=== PATIENT | male | born 1965 | race Caucasian/White ===

== ENCOUNTER 2018-11-09 11:45 | Emergency (ER) | payer BC, OTHER ==
[2018-11-09] MEDS ORDERED: Sodium Chloride 0.9% 10 ML Syringe FLUSH PRN (12:29)
[2018-11-09] MEDS ORDERED: Metoclopramide 10 MG/2 ML SDV IVPUSH ONE (12:29)
[2018-11-09] MEDS ORDERED: Lactated Ringers 1,000 ML IV ONE (12:29)
--- NOTE | 2018-11-09 12:40 | EDM.PDOC ---
ED HPI GENERAL MEDICAL PROBLEM - General Chief Complaint: Abdominal Pain Stated Complaint: ABDOMINAL PAIN Time Seen by Provider: 11/09/18 12:38 Source of Information: Reports: Patient History Limitations: Reports: No Limitations - History of Present Illness INITIAL COMMENTS - FREE TEXT/NARRATIVE: 53-year-old male presents for evaluation and treatment of abdominal pain. Patient reports that the pain started this morning around 0700. Pain Is in the epigastric area. He reports associated symptoms of fevers and chills. Last BM was this morning. He has not appreciated any blood in his stool. Reports a decreased appetite. Denies any urinary symptoms including no dysuria. No diarrhea. No previous abdominal surgeries. Patient does drink alcohol daily, 2-3 drinks per day. Primary care provider is Dr. Solo. Abdominal Pain Score (Numeric/FACES): 6 - Related Data Allergies Allergy/AdvReac Type Severity Reaction Status Date / Time amoxicillin Allergy Nausea Verified 11/09/18 11:49 Home Meds: Home Meds Acetaminophen/oxyCODONE [Percocet 325-5 MG] 1 each PO Q4HR PRN #15 tab 11/09/18 [Rx] Amlodipine. 11/09/18 [History] Bystolic. 11/09/18 [History] Hydrochlorothiazide. 11/09/18 [History] Past Medical History Cardiovascular History: Reports: Hypertension - Past Surgical History Musculoskeletal Surgical History: Reports: Knee Replacement Social & Family History - Tobacco Use Smoking Status *Q: Never Smoker - Recreational Drug Use Recreational Drug Use: No ED ROS GENERAL - Review of Systems Review Of Systems: See Below Constitutional: Reports: Fever, Chills, Malaise, Decreased Appetite Respiratory: Denies: Shortness of Breath Cardiovascular: Denies: Chest Pain GI/Abdominal: Reports: Abdominal Pain (epigastric). Denies: Bloody Stool, Diarrhea, Hematochezia, Melena, Nausea, Vomiting : Reports: No Symptoms ED EXAM, GI/ABD - Physical Exam Exam: See Below Exam Limited By: No Limitations General Appearance: Alert, WD/WN, No Apparent Distress Ears: Normal External Exam Nose: Normal Inspection Throat/Mouth: Normal Inspection, Normal Lips, Normal Oropharynx, Normal Voice, No Airway Compromise Respiratory/Chest: No Respiratory Distress, Lungs Clear, Normal Breath Sounds Cardiovascular: Normal Peripheral Pulses, Regular Rate, Rhythm, No Murmur GI/Abdominal Exam: Normal Bowel Sounds, Soft, No Distention, Guarding, Tender ( greatest in the upper quaddrants and epigastric area) Neurological: Alert, Oriented, Normal Cognition Psychiatric: Normal Affect, Normal Mood Skin Exam: Warm, Dry, Normal Color Course - Vital Signs Last Recorded V/S: Last Vital Signs Temp 100.1 F 11/09/18 11:49 Pulse 77 11/09/18 11:49 Resp 17 11/09/18 11:49 BP 157/109 H 11/09/18 11:49 Pulse Ox 98 11/09/18 11:49 - Orders/Labs/Meds Labs: Laboratory Tests 11/09/18 11/09/18 Range/Units 11:58 11:58 WBC 11.33 H (4.23-9.07) K/mm3 RBC 5.42 (4.63-6.08) M/mm3 Hgb 17.3 (13.7-17.5) gm/L Hct 48.8 (40.1-51.0) % MCV 90.0 (79.0-92.2) fl MCH 31.9 (25.7-32.2) pg MCHC 35.5 (32.2-35.5) g/dl RDW Std Deviation 41.5 (35.1-43.9) fL Plt Count 192 (163-337) K/mm3 MPV 7.9 L (9.4-12.3) fl Neutrophils % (Manual) 87 H (40-60) % Band Neutrophils % 0 (0-10) % Lymphocytes % (Manual) 9 L (20-40) % Atypical Lymphs % 0 % Monocytes % (Manual) 4 (2-10) % Eosinophils % (Manual) 0 L (0.8-7.0) % Basophils % (Manual) 0 L (0.2-1.2) Platelet Estimate Adequate RBC Morph Comment Normal Sodium 136 (136-145) mEq/L Potassium 3.4 L (3.5-5.1) mEq/L Chloride 99 (98-107) mEq/L Carbon Dioxide 26 (21-32) mEq/L Anion Gap 14.4 (5-15) BUN 11 (7-18) mg/dL Creatinine 0.9 (0.7-1.3) mg/dL Est Cr Clr Drug Dosing 94.92 mL/min Estimated GFR (MDRD) > 60 (>60) mL/min BUN/Creatinine Ratio 12.2 L (14-18) Glucose 103 (74-106) mg/dL Calcium 9.0 (8.5-10.1) mg/dL Total Bilirubin 0.8 (0.2-1.0) mg/dL AST 53 H (15-37) U/L ALT 66 H (16-63) U/L Alkaline Phosphatase 56 (46-116) U/L C-Reactive Protein 0.7 (<1.0) mg/dL Total Protein 7.5 (6.4-8.2) g/dl Albumin 3.9 (3.4-5.0) g/dl Globulin 3.6 gm/dL Albumin/Globulin Ratio 1.1 (1-2) Lipase 1289 H (73-393) U/L Meds: Medications Discontinued Medications Generic Name Dose Route Start Last Admin Trade Name Freq PRN Reason Stop Dose Admin Diatrizoate Meglum/Diatrizoate Sod 90 ml 11/09/18 13:28 11/09/18 14:03 Gastrografin 37% PO 11/09/18 13:29 90 ml ONETIME ONE Administration Lactated Ringer's 1,000 mls @ 999 mls/hr 11/09/18 12:29 11/09/18 12:49 Ringers, Lactated IV 11/09/18 13:29 999 mls/hr .BOLUS ONE Administration Iohexol 90 ml 11/09/18 13:28 11/09/18 14:03 Omnipaque-300 IVPUSH 11/09/18 13:29 90 ml ONETIME ONE Administration Metoclopramide HCl 7.5 mg 11/09/18 12:29 11/09/18 12:50 Reglan IVPUSH 11/09/18 12:30 7.5 mg ONETIME ONE Administration Sodium Chloride 10 ml 11/09/18 12:29 11/09/18 12:51 Saline Flush FLUSH 10 ml ASDIRECTED PRN Administration Keep Vein Open - Radiology Interpretation Free Text/Narrative:: CT of the abdomen and pelvis with contrast impression per vrad: there is moderate thickening of the wall of the duodenum with surrounding inflammatory changes . Findings are consistent with duodenitis. Stranding is noted along the head of the pancreas which may be associated with pancreatitis. Clinical correlation is needed. There is a diffuse decrease in hepatic parenchymal density, consistent with mild fatty infiltration. - Re-Assessments/Exams Free Text/Narrative Re-Assessment/Exam: 11/09/18 15:51 Reviewed the labs and imaging with the patient. He agrees to come into the hospital for a short stay. case discussed with Dr. Ortiz, hospitalist salesperson [employer], asks I involve surgery due to concerns of the fevers, elevated wbc and concerns of ascending cholangitis. Contacted Dr. Villafuerte, surgery salesperson hearing [employer], who has come to the ER and seen the patient. Does not feel this is ascending cholangitis. Dr. Villafuerte felt the patient looked well enough he could go home. I discussed with the patient his disposition. He would like to go home. He has family visiting this weekend. Given instructions for no alcohol and clear fluids over the next few days. He is to follow-up in the clinic and return to the ER if his symptoms change or worsen. He is in agreement. Discharge instructions as documented. Departure - Departure Time of Disposition: 15:55 Disposition: Home, Self-Care 01 Condition: Fair Clinical Impression: Pancreatitis, Duodenitis - Discharge Information *PRESCRIPTION DRUG MONITORING PROGRAM REVIEWED*: No *COPY OF PRESCRIPTION DRUG MONITORING REPORT IN PATIENT PEDRO: No Prescriptions: Acetaminophen/oxyCODONE [Percocet 325-5 MG] 1 each PO Q4HR PRN #15 tab PRN Reason: Pain Instructions: Acute Pancreatitis, [id number], Duodenitis Referrals: Enrique Glaser MD [Primary Care Provider] - Forms: ED Department Discharge Additional Instructions: Nothing to eat until Sunday. Recommend a bland diet Sunday as tolerated. Recommend clear fluids until Sunday. Follow up with your primary care provider another provider on Sunday for recheck of your labs in your symptoms. Avoid alcohol, this is likely what caused the pancreatitis today. May take [id number] ibuprofen as needed for pain. Do not take more than 3200 mg of ibuprofen in 1 day. For pain not relieved by ibuprofen you may take Percocet. Percocet is habit-forming, take as few these as needed to control your pain. Do not drive or operate machinery within 10 hours of taking Percocet. Please return to the ER for symptoms change or worsen.
[2018-11-09] MEDS ORDERED: Iohexol 647 MG/ML 100 ML Bottle IVPUSH ONE (13:28)
[2018-11-09] MEDS ORDERED: Diatrizoate Meglumine/Diatrizoate Sodium 37% 120 ML Bottle PO ONE (13:28)
--- NOTE | 2018-11-09 16:47 | CONS ---
CONSULTING PHYSICIAN: Christoph Villafuerte MD DATE OF CONSULTATION: 11/09/2018 REASON FOR CONSULTATION: Pancreatitis versus duodenitis versus cholangitis. CHIEF COMPLAINT: Abdominal pain. HISTORY OF PRESENT ILLNESS: Johnathan is a 53-year-old male who presented to the [facility] ED earlier this morning complaining of abdominal pain. His pain is located in the periumbilical region radiating around the bilateral lower quadrants. He said it started last night. It is associated with lack of appetite. He says the pain is around 5 out of intensity. It is crampy in nature. He has had no nausea or vomiting. No black stool. He has had some loose bowel movements, but no large volume diarrhea. He denies any bloody stools. He has had no prodromes. He denies any previous history. The patient admits to drinking perhaps a bit excessively recently. His is out of town. He has been drinking 2 glasses of wine and 2 shots of whiskey every night and perhaps a bit more since his was out of town, particularly the last 3 days. He reports drinking as result of stress. This morning, he presented to the [facility] ED. They do not have a CT scan working on the weekend, so he was sent over to our facility where he had a CT scan. This showed thickening of the duodenum. I was asked to come and evaluate the patient because he had a mild leukocytosis and a question of cholangitis was raised. PRIOR MEDICAL HISTORY: Hypertension. PRIOR SURGICAL HISTORY: He has had a right knee replacement, scheduled for knee replacement in mid November on the left. MEDICATIONS: At home, he is on 4 hypertensive medications. ALLERGIES: Allergies to medications, amoxicillin. REVIEW OF SYSTEMS: Ten system review is negative except that listed above. PHYSICAL EXAMINATION: GENERAL: He is alert. He does not appear toxic. He is in no distress. VITAL SIGNS: Temperature 100.1, pulse 77, respirations 17, blood pressure 157/109, saturating 98% on room air. HEENT: Normocephalic, atraumatic. He is anicteric. NECK: Supple. Full range of motion. No masses. The trachea is midline. No carotid bruits. No lymphadenopathy. HEART: Regular rate and rhythm. No clicks, murmurs, or rubs. CHEST: Clear to auscultation bilaterally. No crackles, wheezes, or rhonchi. He has good inspiratory effort. ABDOMEN: Soft. He has some mild epigastric tenderness without rebound. There is no guarding. No abdominal hernias. No hepatosplenomegaly. No caput medusae. EXTREMITIES: No clubbing, cyanosis, or edema. No calf tenderness. INTEGUMENT: No jaundice. No petechiae. NEUROLOGIC: His cranial nerves are grossly intact. Moving all 4 extremities. Sensation is preserved. PSYCHIATRIC: He has appropriate affect and demeanor and linear thought process. LABORATORY DATA: Lab showed a marginal leukocytosis of 11.3 and his neutrophils were 87%. There were no bands. Chemistries, he has a marginal elevation of his AST and ALT at 53 and 66. Lipase is mildly elevated at 1289. Potassium 3.4. I have thoroughly evaluated his CT scan. He has duodenitis represented by somewhat marked thickening of the duodenum at least the first, second, and third portions. The fourth portion looks unremarkable. I cannot appreciate any specific stranding around the pancreas. This all appears to be related to the duodenal thickening. ASSESSMENT: Alcoholic duodenitis, pancreatitis is likely secondary to the duodenitis. PLAN: I have had a discussion with him regarding the effects of excessive alcohol use. Duodenitis is certainly a potential result from excessive alcohol abuse. I have also discussed with him the association between excessive alcohol consumption and hypertension. He is on 4 hypertensive medications. He does not have a surgical abdomen. I do not think there is any need to consider cholangitis. He does not have the particularly his bilirubin is stone-cold normal and his common duct is nondistended. He is not jaundiced. He is mentating normally. I think I am quite comfortable sending him home. However, he would be admitted to Dr. Ortiz's service, so I will have him make a determination as to whether or not he wants to keep overnight for observation. Since he is tolerating clear liquids and there was no duodenal obstruction here, I think just some IV fluids and the trip home would be more than adequate. He does not need antibiotics. Alcohol cessation would be strongly advised and he has agreed. He can advance his diet as tolerated. He may benefit from an upper endoscopy sometime down the road when his symptoms have resolved and his duodenum has had the opportunity to heal. I have discussed my plan with Dr. Ortiz. MMODAL /[id number]
--- NOTE | 2018-11-12 08:03 | CT ---
CT abdomen and pelvis Technique: Multiple axial sections were obtained from above the dome of the diaphragm inferiorly through the pubic symphysis. Intravenous and oral contrast was utilized. Delayed images were also obtained through the pelvis. Comparison: No prior abdominal imaging. Findings: Inflammatory change is seen which appears to be centered around the duodenum. This is also adjacent inflammatory change surrounding a portion of the pancreatic head. No additional abnormality is seen within the pancreas. No contrast extravasation is seen from the bowel. Visualized lung bases show nothing acute. Liver contains no focal abnormality. Spleen appears within normal limits. Adrenal glands show no nodule. Kidneys show symmetric contrast enhancement without hydronephrosis or mass. Aorta shows no aneurysm. No retroperitoneal adenopathy is seen. No mesenteric abnormalities are seen. Appendix is seen which is normal. No pelvic mass or adenopathy is identified. Delayed images show contrast within the distal ureters and within the bladder. No free fluid or other inflammatory change is seen within the abdomen or pelvis. Bone window settings were reviewed which show slight degenerative change within the spine with spondylitic defects seen at L5-S1 with minimal spondylolisthesis and vacuum disc phenomena. Impression: 1. Inflammatory changes centered around the duodenum most likely due to fairly severe duodenitis or change from nonvisualized duodenal ulcer. This inflammatory change surrounds a portion of the pancreatic head and difficult to exclude secondary pancreatitis. 2. Other incidental findings. Diagnostic code #3 I agree with preliminary report from [facility], finalized on 11/09/18, 3:44 PM Central Time
== END 2018-11-09 16:15 | disposition home or self-care (01) ==
LOC: JD.ED 11:45
DX: K85.90 Acute pancreatitis without necrosis or infection, unspecified (principal); K29.80 Duodenitis without bleeding; I10 Essential (primary) hypertension; Z88.1 Allergy status to other antibiotic agents
CPT/HCPCS: 36415; 74177; 80053; 83690; 85007; 85027; 86140; 96361; 96374; 99284; J2765; J7120; Q9963; Q9967